=== PATIENT | female | born 1995 | race Two or more races ===

== ENCOUNTER 2016-11-20 14:58 | Emergency (ER) | payer MEDICAID ==
[~2016-11-20] VITALS: Ht 170.2 cm; Wt 68.0 kg
[~2016-11-20 14:58] MED LIST: ALBU6.7H IH
[2016-11-20] MEDS ORDERED: BIRTH CONTROL (15:08)
[2016-11-20] MEDS ORDERED: LORA10TA7 PO (15:08)
[2016-11-20] MEDS ORDERED: KETOROLAC TROMETHAMINE 15 MG INJ IV ONE (15:30)
[2016-11-20] MEDS ORDERED: IV NORMAL SALINE 1000 ML BAG IV ONE (15:30)
[2016-11-20] MEDS ORDERED: ACETAMINOPHEN ES 500 MG TABLET PO ONE (15:30)
[2016-11-20] MEDS ORDERED: ONDANSETRON 4 MG/2 ML VIAL IV ONE (15:30)
[2016-11-20] MEDS ORDERED: KETOROLAC TROMETHAMINE 15 MG INJ ONE (15:32)
[2016-11-20] MEDS ORDERED: ACETAMINOPHEN ES 500 MG TABLET ONE (15:32)
[2016-11-20] MEDS ORDERED: ONDANSETRON 4 MG/2 ML VIAL ONE (15:32)
[2016-11-20 15:34] LABS: BASOPHILS # (AUTO) 0.1 K/uL (0.0-8.0); BASOPHILS % (AUTO) 0.7 % (0.0-2.0); EOSINOPHILS % (AUTO) 0.5 % (0.0-7.0); HEMATOCRIT 42.6 % (31.2-41.9); HEMOGLOBIN 14.3 g/dL (10.9-14.3); LYMPHOCYTES # (AUTO) 0.4 K/uL (20.0-40.0); LYMPHOCYTES % (AUTO) 5.7 % (20.5-51.5); MEAN CORPUSCULAR HGB CONC 34 g/dL (32.3-35.6); MEAN CORPUSCULAR VOLUME 86.3 fL (75.5-95.3); MONOCYTES # (AUTO) 0.3 K/uL (2.0-10.0); MONOCYTES % (AUTO) 3.4 % (0.0-11.0); NEUTROPHILS # (AUTO) 7.1 K/uL (1.8-8.9); NEUTROPHILS % (AUTO) 89.7 % (38.5-71.5); PLATELET COUNT (AUTO) 305 K/uL (179-408); RED BLOOD CELL COUNT(AUTO) 4.93 MIL/uL (3.63-4.92); RED CELL DISTRIBUTION WIDTH 12.1 % (12.3-17.7); WHITE BLOOD COUNT (AUTO) 7.9 K/uL (3.8-11.8)
--- NOTE | 2016-11-20 15:34 | NUR ---
labs drawn and sent/meds admin/2 l 0.9ns bolus infusing, pt positioned for comfort.
[2016-11-20 15:37] LABS: *BLOOD, URINE NEGATIVE (NEGATIVE); *COLOR,URINE DARK YELLOW (YELLOW); *KETONES,URINE 2+ (NEGATIVE); *PROTEIN,URINE TRACE (NEGATIVE); *UROBILINOGEN,URINE 0.2 E.U./dl (NORMAL); LEUKOCYTE ESTERASE ,URINE NEGATIVE (NEGATIVE); NITRITE, URINE NEGATIVE (NEGATIVE); PH,URINE 5.5 (5.0-8.0); UGLUCOSE NEGATIVE (NEGATIVE)
[2016-11-20 15:39] LABS: *URINE HCG, QUAL NEGATIVE (NEGATIVE)
[2016-11-20 15:44] LABS: *BILIRUBIN,URIN NEGATIVE (NEGATIVE); *CLARITY,URINE HAZY (CLEAR)
[2016-11-20 15:45] LABS: BACTERIA,URINE FEW /HPF (NONE SEEN); SQUAMOUS EPITHELIAL CELL,UR MODERATE /HPF (NONE SEEN); WBC,URINE 0-3 /HPF (0-3)
[2016-11-20 15:46] LABS: MUCUS,URINE MANY /LPF (0-FEW)
[2016-11-20 15:52] LABS: ALBUMIN 3.9 g/dL (3.4-5.0); BILIRUBIN,DIRECT 0.2 mg/dL (0.0-0.2); BILIRUBIN,TOTAL 1.7 mg/dL (0.2-1.0); CREATININE 0.9 mg/dL (0.6-1.3); POTASSIUM 3.6 mmol/L (3.5-5.1); TOTAL PROTEIN, SERUM 8.1 g/dL (6.4-8.2)
--- NOTE | 2016-11-20 16:47 | NUR ---
pt tolerated po's. 2l 0.9ns infused, iv d/c'd intact, aci/rx x2 given. pt got dressed and ambulated w/o diff/took all belongings.
[2016-11-20 16:51] VITALS: BP 105/62
== END 2016-11-20 16:51 | disposition home or self-care (01) ==
LOC: ER 15:07
DX: R11.10 Vomiting, unspecified (principal); R19.7 Diarrhea, unspecified; J45.909 Unspecified asthma, uncomplicated; F10.20 Alcohol dependence, uncomplicated; R50.9 Fever, unspecified; Z90.49 Acquired absence of other specified parts of digestive tract
CPT/HCPCS: 36415; 80048; 80076; 81001; 83690; 84703; 85025; 96361; 96374; 96375; 99284; A4663; J1885; J2405; J7030 ×2

== ENCOUNTER 2017-01-28 02:01 | Emergency (ER) | payer MEDICAID ==
[~2017-01-28] VITALS: Ht 170.2 cm; Wt 68.0 kg
[~2017-01-28 02:01] MED LIST changes: +BIRTH CONTROL; +LORA10TA7 PO
[2017-01-28] MEDS ORDERED: FLUT9.9S (02:18)
--- NOTE | 2017-01-28 02:22 | NUR ---
DR SANCHEZ AT BEDSIDE FOR MSE
--- NOTE | 2017-01-28 02:24 | NUR ---
RESP. THERAPIST CALLED PER MD FOR TX
[2017-01-28] MEDS ORDERED: ALBUTEROL SULFATE 2.5 MG/3 ML NEBU NEB ONE (02:30)
[2017-01-28] MEDS ORDERED: ALBUTEROL SULFATE 2.5 MG/3 ML NEBU ONE (02:40)
--- NOTE | 2017-01-28 03:14 | NUR ---
Patient discharged to home in stable conditon. Written and verbal after care instructions given. PT ADVISED TO FOLLOW UP WITH PMD AND TO RETURN TO THE ED IF CONDITION WORSENS. Patient verbalizes understanding of instructions.
[2017-01-28 03:16] VITALS: BP 119/74
== END 2017-01-28 03:14 | disposition home or self-care (01) ==
LOC: ER 02:04
DX: J20.9 Acute bronchitis, unspecified (principal); J45.909 Unspecified asthma, uncomplicated
CPT/HCPCS: A4663

== ENCOUNTER 2017-02-13 19:33 | Emergency (ER) | payer MEDICAID ==
[~2017-02-13] VITALS: Ht 170.2 cm; Wt 68.0 kg
[~2017-02-13 19:33] MED LIST changes: +FLUT9.9S
--- NOTE | 2017-02-13 21:18 | NUR ---
Patient discharged to home in stable conditon. Written and verbal after care instructions given. Patient verbalizes understanding of instructions.
== END 2017-02-13 21:19 | disposition home or self-care (01) ==
LOC: ER 19:38
DX: Z00.00 Encounter for general adult medical examination without abnormal findings (principal); J45.909 Unspecified asthma, uncomplicated
CPT/HCPCS: 99281; A4663

== ENCOUNTER 2017-02-14 21:14 | Emergency (ER) | payer MEDICAID ==
[~2017-02-14] VITALS: Ht 170.2 cm; Wt 70.3 kg
[2017-02-14] MEDS: ONDANSETRON IV *ER 4 MG/2 ML VIAL IV ONE (23:31)
[2017-02-14 23:32] LABS: BASOPHILS # (AUTO) 0.1 K/uL (0.0-8.0); BASOPHILS % (AUTO) 0.8 % (0.0-2.0); EOSINOPHILS # (AUTO) 0.3 K/uL (0.0-0.7); EOSINOPHILS % (AUTO) 3.2 % (0.0-7.0); HEMATOCRIT 39.2 % (37-47); LYMPHOCYTES # (AUTO) 3.3 K/UL (0.8-4.8); LYMPHOCYTES % (AUTO) 38.9 % (20.5-51.5); MEAN CORPUSCULAR HGB CONC 33 g/dL (32.0-37.0); MEAN CORPUSCULAR VOLUME 87.5 FL (81.0-99.0); MONOCYTES # (AUTO) 0.7 K/UL (0.1-1.30); MONOCYTES % (AUTO) 7.8 % (0.0-11.0); NEUTROPHILS # (AUTO) 4.1 K/UL (1.8-8.9); NEUTROPHILS % (AUTO) 49.3 % (38.5-71.5); PLATELET COUNT (AUTO) 332 K/UL (150-450); RED BLOOD CELL COUNT(AUTO) 4.48 MIL/UL (4.2-5.4); WHITE BLOOD COUNT (AUTO) 8.5 K/UL (4.0-11.2)
[2017-02-14 23:33] VITALS: BP 129/76
[2017-02-14] MEDS: MAG HYDROX/AL HYDROX/SIMETH 30 ML LIQUID UDC PO ONE (23:33)
[2017-02-14] MEDS: DICYCLOMINE HCL 10 MG/5 ML UDC LIQ PO ONE (23:33)
[2017-02-14] MEDS: NITROGLYCERIN OINT 1 GM PACKET TP ONE (23:33)
[2017-02-14] MEDS: ASPIRIN 81 MG TAB.CHEW PO ONE (23:33)
[2017-02-14] MEDS ORDERED: ASPIRIN 81 MG TAB.CHEW ONE (23:38)
[2017-02-14] MEDS ORDERED: MAG HYDROX/AL HYDROX/SIMETH 30 ML LIQUID UDC ONE (23:38)
[2017-02-14] MEDS ORDERED: ONDANSETRON 4 MG/2 ML VIAL ONE (23:38)
[2017-02-14] MEDS ORDERED: NITROGLYCERIN OINT 1 GM PACKET TP ONE (23:38)
[2017-02-14] MEDS ORDERED: DICYCLOMINE HCL 10 MG/5 ML UDC LIQ ONE (23:38)
[2017-02-14 23:52] LABS: BILIRUBIN,DIRECT 0.1 mg/dL (0.0-0.2); BILIRUBIN,TOTAL 0.6 mg/dL (0.2-1.0); CREATININE 0.9 mg/dL (0.6-1.3); POTASSIUM 3.7 mmol/L (3.5-5.1); TOTAL PROTEIN, SERUM 7.7 g/dL (6.4-8.2)
[2017-02-15] MEDS: IV NORMAL SALINE 1000 ML BAG IV ONE (00:02)
--- NOTE | 2017-02-15 01:33 | NUR ---
Patient discharged to home in stable conditon. Written and verbal after care instructions given. Patient verbalizes understanding of instructions.
== END 2017-02-15 01:34 | disposition home or self-care (01) ==
LOC: ER 21:14
DX: R07.9 Chest pain, unspecified (principal); R10.13 Epigastric pain; R20.9 Unspecified disturbances of skin sensation; K82.4 Cholesterolosis of gallbladder; F41.9 Anxiety disorder, unspecified; J45.909 Unspecified asthma, uncomplicated; F10.20 Alcohol dependence, uncomplicated
CPT/HCPCS: 36415; 70030-TC; 71010; 83690; 85025; 85730; 93005; A4663; J2405; J7030

== ENCOUNTER 2017-02-20 12:27 | Emergency (ER) | payer MEDICAID, OTHER ==
[~2017-02-20] VITALS: Ht 170.2 cm; Wt 70.3 kg
[2017-02-20] MEDS ORDERED: FLUT1DIS28 IH (12:42)
[2017-02-20] MEDS ORDERED: RANI-551 PO (12:42)
[2017-02-20] MEDS ORDERED: LIDOCAINE VISCUS 2% 15 ML UDC MM ONE (13:00)
[2017-02-20] MEDS ORDERED: MAG HYDROX/AL HYDROX/SIMETH 30 ML LIQUID UDC PO ONE (13:00)
[2017-02-20] MEDS ORDERED: PANTOPRAZOLE SODIUM 40 MG TABLET.DR PO ONE ×2 (13:00→13:27)
[2017-02-20 13:18] LABS: *URINE HCG, QUAL NEGATIVE (NEGATIVE)
[2017-02-20] MEDS ORDERED: LIDOCAINE VISCUS 2% 15 ML UDC ONE (13:27)
[2017-02-20] MEDS ORDERED: MAG HYDROX/AL HYDROX/SIMETH 30 ML LIQUID UDC ONE (13:27)
--- NOTE | 2017-02-20 13:49 | NUR ---
Patient discharged to home in stable conditon. Written and verbal after care instructions given. Patient verbalizes understanding of instructions.
== END 2017-02-20 13:50 | disposition home or self-care (01) ==
LOC: ER 12:27
DX: K52.9 Noninfective gastroenteritis and colitis, unspecified (principal); J45.909 Unspecified asthma, uncomplicated; F41.9 Anxiety disorder, unspecified; Z79.899 Other long term (current) drug therapy; Z90.49 Acquired absence of other specified parts of digestive tract
CPT/HCPCS: 84703; A4663

== ENCOUNTER 2017-08-15 01:04 | Emergency (ER) | payer OTHER ==
[~2017-08-15] VITALS: Ht 170.2 cm; Wt 68.9 kg
[~2017-08-15 01:04] MED LIST changes: +FLUT1DIS28 IH; -LORA10TA7 PO; +RANI-551 PO
--- NOTE | 2017-08-15 01:38 | NUR ---
Patient discharged to home in stable conditon. Written and verbal after care instructions given. Patient verbalizes understanding of instructions.
== END 2017-08-15 01:38 | disposition home or self-care (01) ==
LOC: ER 01:06
DX: B34.9 Viral infection, unspecified (principal); J45.909 Unspecified asthma, uncomplicated; K58.9 Irritable bowel syndrome, unspecified; Z90.49 Acquired absence of other specified parts of digestive tract
CPT/HCPCS: A4663

== ENCOUNTER 2017-08-17 20:06 | Emergency (ER) | payer OTHER ==
[~2017-08-17] VITALS: Ht 170.2 cm; Wt 68.0 kg
--- NOTE | 2017-08-17 21:03 | NUR ---
Patient discharged to home in stable conditon. Written and verbal after care instructions given as well as RX. Patient verbalizes understanding of instructions. Walked out of ER with steady gait. Driven home by significant other.
[2017-08-17 21:07] VITALS: BP 112/73
== END 2017-08-17 21:08 | disposition home or self-care (01) ==
LOC: ER 20:06
DX: R11.2 Nausea with vomiting, unspecified (principal); B34.9 Viral infection, unspecified; J45.909 Unspecified asthma, uncomplicated; Z90.49 Acquired absence of other specified parts of digestive tract
CPT/HCPCS: A4663

== ENCOUNTER 2017-11-16 00:03 | Emergency (ER) | payer OTHER ==
[~2017-11-16] VITALS: Ht 170.2 cm; Wt 68.0 kg
--- NOTE | 2017-11-16 00:28 | NUR ---
JULIO HAMMOND at bedside for patient evaluation.
[2017-11-16] MEDS ORDERED: LORATADINE 10 MG TABLET ONE (00:33)
--- NOTE | 2017-11-16 00:41 | NUR ---
Patient discharged to home in stable conditon. Written and verbal after care instructions given. Patient verbalizes understanding of instructions. Ambulated from Er with stable gait. All belongings with patient.
[2017-11-16 00:43] VITALS: BP 128/71
[2017-11-16] MEDS ORDERED: LORATADINE 10 MG TABLET PO SCH (09:00)
== END 2017-11-16 00:44 | disposition home or self-care (01) ==
LOC: ER 00:05
DX: H57.9 Unspecified disorder of eye and adnexa (principal); J45.909 Unspecified asthma, uncomplicated; Z90.49 Acquired absence of other specified parts of digestive tract; Z79.51 Long term (current) use of inhaled steroids; Z79.3 Long term (current) use of hormonal contraceptives; Z79.899 Other long term (current) drug therapy
CPT/HCPCS: A4663

== ENCOUNTER 2017-12-23 21:01 | Emergency (ER) | payer OTHER ==
[~2017-12-23] VITALS: Ht 170.2 cm; Wt 68.0 kg
--- NOTE | 2017-12-23 21:27 | NUR ---
Patient discharged to home in stable conditon. Written and verbal after care instructions given. Patient verbalizes understanding of instructions.
[2017-12-23 21:28] VITALS: BP 111/70
== END 2017-12-23 21:29 | disposition home or self-care (01) ==
LOC: ER 21:02
DX: H66.91 Otitis media, unspecified, right ear (principal); J45.909 Unspecified asthma, uncomplicated; Z90.49 Acquired absence of other specified parts of digestive tract; Z79.51 Long term (current) use of inhaled steroids; Z79.3 Long term (current) use of hormonal contraceptives; Z79.899 Other long term (current) drug therapy
CPT/HCPCS: A4663

== ENCOUNTER → 2018-01-19 | Emergency (ER) | payer OTHER ==
[~2018-01-19] VITALS: Ht 170.2 cm; Wt 72.6 kg
== END | disposition home or self-care (01) ==
LOC: ER 14:35
DX: Z53.21 Procedure and treatment not carried out due to patient leaving prior to being seen by health care provider (principal)
CPT/HCPCS: A4663

== ENCOUNTER 2018-02-02 13:09 | Emergency (ER) | payer OTHER ==
[~2018-02-02] VITALS: Ht 170.2 cm; Wt 68.0 kg
--- NOTE | 2018-02-02 14:01 | NUR ---
PATIENT WAS SEEN BY MD FOR C/O ABRASIONS ON BOTH LEGS FROM FALL OFF SKATEBOARD. DC AND F/U INSTRUCTIONS GIVEN AND EXPLAINED TO PATIENT WHO STATES SHE UNDERSTANDS ALL INSTRUCTIONS.
== END 2018-02-02 14:04 | disposition home or self-care (01) ==
LOC: ER 13:13
DX: S80.212A Abrasion, left knee, initial encounter (principal); S80.211A Abrasion, right knee, initial encounter; J45.909 Unspecified asthma, uncomplicated; Z90.49 Acquired absence of other specified parts of digestive tract; Z79.51 Long term (current) use of inhaled steroids; Z79.3 Long term (current) use of hormonal contraceptives; Z79.899 Other long term (current) drug therapy; W01.0XXA Fall on same level from slipping, tripping and stumbling without subsequent striking against object, initial encounter; Y93.89 Activity, other specified; Y92.89 Other specified places as the place of occurrence of the external cause; Y99.8 Other external cause status
CPT/HCPCS: A4663

== ENCOUNTER 2018-04-14 21:06 | Emergency (ER) | payer OTHER ==
[~2018-04-14] VITALS: Ht 170.2 cm; Wt 68.0 kg
--- NOTE | 2018-04-14 21:27 | NUR ---
DR. JURAOD AT BEDSIDE FOR MSE.
--- NOTE | 2018-04-14 21:44 | NUR ---
Patient discharged to home in stable conditon. Written and verbal after care instructions given. Patient verbalizes understanding of instructions. PATIENT LEFT WITH STABLE GAIT.
[2018-04-14 21:45] VITALS: BP 129/78
== END 2018-04-14 21:45 | disposition home or self-care (01) ==
LOC: ER 21:07
DX: Z11.1 Encounter for screening for respiratory tuberculosis (principal); J45.909 Unspecified asthma, uncomplicated; Z90.49 Acquired absence of other specified parts of digestive tract
CPT/HCPCS: 99281; A4663

== ENCOUNTER 2018-05-05 21:01 | Emergency (ER) | payer MEDICAID, OTHER ==
[~2018-05-05] VITALS: Ht 170.2 cm; Wt 68.0 kg
--- NOTE | 2018-05-05 21:11 | NUR ---
PT A/OX4, RESPONSIVE TO VERBAL AND TACTILE STIMULI. PT C/O COUGH X4 DAYS. PT STATES THE COUGH HAS BEEN NON-PRODUCTIVE. VSS. PT IS AFEBRILE. PT DENIES PAIN, C/P, SOB, N/V/D, DIZZINESS, HEADACHE. ER MD AT BEDSIDE.
[2018-05-05] MEDS ORDERED: predniSONE 20 MG TABLET PO ONE (21:15)
[2018-05-05] MEDS ORDERED: predniSONE 20 MG TABLET ONE (21:18)
--- NOTE | 2018-05-05 21:24 | NUR ---
Patient discharged to home in stable conditon. Written and verbal after care instructions given. Patient verbalizes understanding of instructions. PT D/C HOME WITH PRESCRIPTION. PT SELF-AMBULATES WITHOUT DIFFICULTY. ALL BELONGINGS W/ PT.
[2018-05-05 21:25] VITALS: BP 118/82
== END 2018-05-05 21:26 | disposition home or self-care (01) ==
LOC: ER 21:01
DX: J20.9 Acute bronchitis, unspecified (principal); J45.909 Unspecified asthma, uncomplicated; Z90.49 Acquired absence of other specified parts of digestive tract
CPT/HCPCS: 99283; A4663; J7512

== ENCOUNTER 2018-08-11 21:00 | Emergency (ER) | payer OTHER ==
[~2018-08-11] VITALS: Ht 170.2 cm; Wt 68.0 kg
[2018-08-11 22:12] VITALS: BP 121/84
--- NOTE | 2018-08-11 22:14 | NUR ---
Patient discharged to home in stable conditon. Written and verbal after care instructions given. Patient verbalizes understanding of instructions. Pt ambulated out of ER in steady gait. All belongings with pt. VSS. NAD noted.
== END 2018-08-11 23:21 | disposition home or self-care (01) ==
LOC: ER 21:02
DX: H66.91 Otitis media, unspecified, right ear (principal); J45.909 Unspecified asthma, uncomplicated; Z79.51 Long term (current) use of inhaled steroids; Z79.899 Other long term (current) drug therapy; Z90.49 Acquired absence of other specified parts of digestive tract
CPT/HCPCS: A4663

== ENCOUNTER 2018-10-27 20:07 | Emergency (ER) | payer OTHER ==
[~2018-10-27] VITALS: Ht 170.2 cm; Wt 68.0 kg
[2018-10-27] MEDS ORDERED: ONDANSETRON ODT 4 MG TAB.RAPDIS SL ONE (20:45)
[2018-10-27] MEDS ORDERED: MECLIZINE HCL 25 MG TABLET PO ONE (20:45)
[2018-10-27] MEDS ORDERED: MECLIZINE HCL 25 MG TABLET ONE (20:53)
[2018-10-27] MEDS ORDERED: ONDANSETRON ODT 4 MG TAB.RAPDIS ONE (20:53)
--- NOTE | 2018-10-27 21:03 | NUR ---
Patient discharged to home in stable conditon. Written and verbal after care instructions given. Patient verbalizes understanding of instructions. Ambulated from ER with stable gait. All belongings with patient. VSS
[2018-10-27 21:05] VITALS: BP 125/80
== END 2018-10-27 21:05 | disposition home or self-care (01) ==
LOC: ER 20:07
DX: R42 Dizziness and giddiness (principal); J45.909 Unspecified asthma, uncomplicated; Z90.49 Acquired absence of other specified parts of digestive tract; Z79.51 Long term (current) use of inhaled steroids; Z79.899 Other long term (current) drug therapy
CPT/HCPCS: A4663; J8597; Q0162

== ENCOUNTER 2018-11-28 10:26 | Emergency (ER) | payer OTHER ==
[~2018-11-28] VITALS: Ht 154.9 cm; Wt 72.6 kg
[2018-11-28 10:59] LABS: *BILIRUBIN,URIN NEGATIVE (NEGATIVE); *BLOOD, URINE NEGATIVE (NEGATIVE); *CLARITY,URINE CLEAR (CLEAR); *COLOR,URINE YELLOW (YELLOW); *KETONES,URINE NEGATIVE (NEGATIVE); *UROBILINOGEN,URINE 0.2 E.U./dl (NORMAL); LEUKOCYTE ESTERASE ,URINE NEGATIVE (NEGATIVE); NITRITE, URINE NEGATIVE (NEGATIVE); PH,URINE 8.5 (5.0-8.0); UGLUCOSE NEGATIVE (NEGATIVE)
[2018-11-28 11:00] LABS: *URINE HCG, QUAL NEGATIVE (NEGATIVE); WBC,URINE 0-3 /HPF (0-3)
--- NOTE | 2018-11-28 11:10 | NUR ---
Patient discharged to home in stable conditon. Written and verbal after care instructions given to patient. Patient verbalizes understanding of instructions.
== END 2018-11-28 11:11 | disposition home or self-care (01) ==
LOC: ER 10:26
DX: N39.0 Urinary tract infection, site not specified (principal); J45.909 Unspecified asthma, uncomplicated; Z90.49 Acquired absence of other specified parts of digestive tract; Z79.899 Other long term (current) drug therapy
CPT/HCPCS: 84703; A4663

== ENCOUNTER 2019-03-31 20:39 | Emergency (ER) | payer OTHER ==
[~2019-03-31] VITALS: Ht 170.2 cm; Wt 72.6 kg
--- NOTE | 2019-03-31 20:41 | NUR ---
MD AT BEDSIDE FOR HX AND PHYSICAL ABLE TO AMBULATE WITH ANTALGIC GAIT PT RECEIVED C/O LOWER LULMBAR BACK PN SINCE 03/16/19, INCREASING AND CONSTANT RADIATING TOWARDS B/L FLANK DENIES FEVER/CHILLS/HEADACHE , DENIES NVD, DENIES CHANGES IN B/B FUNCTION DENIES RADICULOPATHIES NOR PARESTHESIAS ON LOWER EXTREMITIES MONITORED ACCORDINGLY SIDERAILSX2 UP, BED AT LOWEST POSITION
[2019-03-31 21:29] LABS: BASOPHILS # (AUTO) 0.1 K/uL (0.0-8.0); BASOPHILS % (AUTO) 0.7 % (0.0-2.0); EOSINOPHILS # (AUTO) 0.1 K/uL (0.0-0.7); EOSINOPHILS % (AUTO) 1.4 % (0.0-7.0); HEMATOCRIT 35.1 % (31.2-41.9); HEMOGLOBIN 12.1 g/dL (10.9-14.3); LYMPHOCYTES # (AUTO) 2.8 K/uL (20.0-40.0); LYMPHOCYTES % (AUTO) 30.2 % (20.5-51.5); MEAN CORPUSCULAR HEMOGLOBIN 29.3 uug (24.7-32.8); MEAN CORPUSCULAR HGB CONC 35 g/dL (32.3-35.6); MEAN CORPUSCULAR VOLUME 84.8 fL (75.5-95.3); MONOCYTES # (AUTO) 0.7 K/uL (2.0-10.0); NEUTROPHILS # (AUTO) 5.7 K/uL (1.8-8.9); NEUTROPHILS % (AUTO) 60.7 % (38.5-71.5); PLATELET COUNT (AUTO) 289 K/uL (179-408); RED BLOOD CELL COUNT(AUTO) 4.14 MIL/uL (3.63-4.92); WHITE BLOOD COUNT (AUTO) 9.4 K/uL (3.8-11.8)
[2019-03-31 21:38] LABS: CREATININE 0.9 mg/dL (0.6-1.3); POTASSIUM 3.9 mmol/L (3.5-5.1)
[2019-03-31 21:44] LABS: BILIRUBIN,DIRECT 0.2 mg/dL (0.0-0.2); BILIRUBIN,TOTAL 0.8 mg/dL (0.2-1.0); TOTAL PROTEIN, SERUM 7.4 g/dL (6.4-8.2)
[2019-03-31 22:46] VITALS: BP 120/77
--- NOTE | 2019-03-31 22:47 | NUR ---
Patient discharged to home in stable conditon. Written and verbal after care instructions given. Patient verbalizes understanding of instructions. Walked out of ER with no distress noted.
== END 2019-03-31 22:48 | disposition home or self-care (01) ==
LOC: ER 20:41
DX: S39.012A Strain of muscle, fascia and tendon of lower back, initial encounter (principal); J45.909 Unspecified asthma, uncomplicated; F41.9 Anxiety disorder, unspecified; Z90.49 Acquired absence of other specified parts of digestive tract; Z79.51 Long term (current) use of inhaled steroids; Z79.899 Other long term (current) drug therapy; X58.XXXA Exposure to other specified factors, initial encounter; Y93.89 Activity, other specified; Y92.89 Other specified places as the place of occurrence of the external cause; Y99.8 Other external cause status
CPT/HCPCS: 36415; 72072; 72100; 83690; 85025; A4663